=== PATIENT | female | born 1985 | race African-American/Black ===

== ENCOUNTER → 2016-11-25 | Outpatient (CLI) | payer OTHER ==
[~2016-11-25] MED LIST: PRENTAB26 PO
== END | disposition home or self-care (01) ==
LOC: C.LABSPEC 12:49
PROVIDERS: ATTEND Obstetrics & Gynecology
DX: Z34.93 Encounter for supervision of normal pregnancy, unspecified, third trimester (principal)

== ENCOUNTER 2016-12-11 02:52 | Inpatient (IN) | payer OTHER ==
[~2016-12-11] VITALS: Ht 165.1 cm; Wt 95.5 kg
[2016-12-18] MEDS ORDERED: LACTATED RINGER'S 1000ML 500 ML IV PRN ×2 (09:13→12:27)
[2016-12-18] MEDS ORDERED: OXYTOCIN 30 UNITS/500ML NSS IV PRN ×2 (09:30→15:45)
[2016-12-18 09:53] LABS: HEMATOCRIT 34.2 % (37-47); MEAN CELL VOLUME 74.3 fL (80-100); MEAN PLATELET VOLUME 10.6 fL (7.4-10.4); PLATELET COUNT 193 K/uL (130-400); WHITE BLOOD COUNT 9.83 K/uL (4.8-10.8)
[2016-12-18] MEDS: LACTATED RINGER'S 1000ML 1,000 ML IV SCH ×3 (10:15→14:24)
[2016-12-18 10:57] VITALS: Ht 165.1 cm; Wt 95.5 kg
--- NOTE | 2016-12-18 11:15 | Medical Student: [facility] ---
Med Student History & Physical Date of Service Dec 18, 2016. Chief Complaint Induction History of Present Illness Source: patient 31 year old , [employer] 12/11/16 by US 05/06/16, 41 weeks GA, for induction. Patient is currently feeling contractions and movement. No bleeding or fluid leaks however. She denies GRIDER, dizziness, lightheadedness, and vision changes. Her course was significant for no pole seen on US on 04/16 when she was told she had a miscarriage. Subsequent US were WNL however . PMH is significant for anemia, asthma, and functional murmur. NST at 40 + 6 weeks GA was reactive. Patient is blood type A +, negative antibody screen, rubella immune, VDRL/RPR nonreactive, negative HbsAg & HIV, negative G & C, negative 2nd trimester screen and negative GBS culture. Her gynecologic history is significant for a right dermoid ovarian cyst discovered on US at 7 weeks 4 days GA. 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 Patient needs US for possible removal. Last pap smear in 2014 was negative for intraepithelial lesion and malignancy. Obstetrical history is significant for an elective in June 2014 at 7 weeks GA and a in April 2012 at 39 weeks GA. OB History Obstetrical history is significant for an elective in 2013 at 7 weeks GA and a on 04/15/2012 at 30 weeks GA. The baby was 7 lbs. No complications with the . TE[employer]ER [employer]ARN[employer] DISABLED History Gynecological history is significant for menarche beginning at age 15 and frequency of menstruation is every 23 days. Patient has no history of abnormal pap smear. Last pap in 2014 showed no intraepithelial lesion or malignancy. No history of STIs and she does has a history of dense breasts. Past Medical History Past medical history is significant for a right dermoid cyst discovered at 7 weeks 4 days GA, anemia, functional murmur, and asthma. Past Surgical History Surgical history significant for wisdom teeth extraction 2 years ago. Family History Family history is significant for breast cancer (mother), HTN (aunt) and DM ( aunt). 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 FOB is not involved. She has never used tobacco products. She dose not consume alcohol and has never used illicit drugs. Smoking Status: Never Smoker Smokeless Tobacco Use: No Alcohol Use: socially Drug Use: none Marital Status: single Housing status: lives with family (lives in [place] with 4 year old daughter ) Occupational Status: employed ([place] at [employer] and works for [employer]) Allergies Coded Allergies: No Known Allergies (Unverified , 12/18/16) Home Medications Multivit/Min/Iron/Fol Ac/Pren ( Vitamin), 1 TAB PO DAILY Review of Systems Constitutional: No fever Eyes: No worsening of vision ENT: No hearing loss Respiratory: No cough, No shortness of breath Cardiovascular: No chest pain, No palpitations Abdomen: No constipation, No diarrhea, No nausea, No pain, No vomiting Genitourinary - Female: No dysuria Integumentary: No itch, No rash Physical Exam General Appearance: WD/WN, no apparent distress Head: normocephalic Eyes: normal inspection ENT: normal ENT inspection Neck: supple, no adenopathy Respiratory/Chest: lungs clear, normal breath sounds, no respiratory distress Cardiovascular: regular rate, rhythm, no gallop, no JVD, no murmur Extremities: + pedal edema (1 + b/l ) Skin: normal color, warm/dry Vitals: HR 73, BP 122/81 Cervical exam: 4 cm dilated, 50 % effaced, -2 station Monitoring External Monitor: Heart Tracing Category 1: HR 143, moderate variability, present early decelerations, present accelerations, absent variable and late decelerations. Tocodynamometer: contractions every 3 minutes Laboratory Results 12/18/16 09:34 Test 12/18/16 09:34 Red Blood Count 4.60 M/uL (4.2-5.4) Mean Corpuscular Volume 74.3 fL (80-100) Mean Corpuscular Hemoglobin 23.0 pg (25-34) Mean Corpuscular Hemoglobin Concent 31.0 g/dl (32-36) RDW Standard Deviation 51.6 fL (36.4-46.3) RDW Coefficient of Variation 19.4 % (11.5-14.5) Mean Platelet Volume 10.6 fL (7.4-10.4) Nucleated RBC Absolute Count (auto) 0.02 K/uL (0-0) Nucleated Red Blood Cells % 0.2 % Assessment and Plan 31 year old , [employer] 12/11/16 by US 05/06/16, 41 weeks GA, for induction. Patient is blood type A +, rubella immune, and GBS negative culture. Patient is currently feeling contractions and movement. No bleeding or fluid leaks however. -continue Oxytocin 30 units IV for labor induction -continue EFM -patient will notify when she wants epidural for pain control
[2016-12-18] MEDS ORDERED: EpHEDrine SULFATE INJ 50 MG/ML AMP ONE (12:10)
[2016-12-18] MEDS ORDERED: BUPIVACAINE 0.25% 30 ML VIAL ONE (12:10)
[2016-12-18] MEDS ORDERED: FENTANYL 2MCG/ML ROPIV 1.25MG/ML 100ML BAG EPI ONE (12:10)
[2016-12-18] MEDS ORDERED: FENTANYL CITRATE INJ 50 MCG/1 ML 2 ML VIAL ONE (12:10)
[2016-12-18] MEDS ORDERED: NALOXONE HCL INJ 1 MG in SODIUM CHLORIDE 0.9% 1000ML 1,000 ML IV PRN (12:27)
[2016-12-18] MEDS ORDERED: FENTANYL 2MCG/ML ROPIV 1.25MG/ML 100ML BAG EPI PRN (12:30)
[2016-12-18] MEDS ORDERED: NALOXONE HCL INJ 0.4 MG/1 ML VIAL/CARP IV PRN (12:30)
[2016-12-18] MEDS ORDERED: NALBUPHINE HCL INJ 10 MG/ML AMP IV PRN (12:30)
[2016-12-18] MEDS ORDERED: EpHEDrine SULFATE INJ 50 MG/ML AMP IV PRN (12:30)
[2016-12-18] MEDS ORDERED: DiphenhydrAMINE HCL 50 MG/ML VIAL IV PRN (12:30)
--- NOTE | 2016-12-18 13:47 | Medical Student: [facility] ---
Med Student GERIATRIC PHYSICAL THERAPIST Progress Nt Date of Service Dec 18, 2016. 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 Patient is blood type A +, rubella immune, and GBS negative culture. Patient is currently feeling contractions and movement. No bleeding. Epidural in place. Artificial rupture of membranes by Dr. Rogel. Review of Systems Constitutional: No fever Respiratory: No cough, No shortness of breath Cardiac: No chest pain, No palpitations Abdomen: No diarrhea, No nausea, No pain, No vomiting Female : No dysuria Objective Vital Signs Maternal BP: 121/70 Maternal HR: 81 Physical Exam General Appearance: WELL-APPEARING, WD/WN, NO APPARENT DISTRESS Respiratory/Chest: lungs clear, normal breath sounds Cardiovascular: regular rate, rhythm, no gallop, no JVD, no murmur Extremities: + pedal edema (1 + b/l ) Laboratory Results Last 24 Hours Test 12/18/16 09:34 White Blood Count 9.83 K/uL Red Blood Count 4.60 M/uL Hemoglobin 10.6 g/dL Hematocrit 34.2 % Mean Corpuscular Volume 74.3 fL Mean Corpuscular Hemoglobin 23.0 pg Mean Corpuscular Hemoglobin Concent 31.0 g/dl RDW Standard Deviation 51.6 fL RDW Coefficient of Variation 19.4 % Platelet Count 193 K/uL Mean Platelet Volume 10.6 fL Nucleated RBC Absolute Count (auto) 0.02 K/uL Nucleated Red Blood Cells % 0.2 % Medications Medications (Trade) Dose Ordered Sig/Storm Route Start Time Stop Time Status Last Admin Dose Admin Lactated Ringer's (Lr 1000ml) 1,000 ml @ 125 mls/hr Q8H IV 12/18/16 09:30 12/20/16 09:29 12/18/16 12:49 125 MLS/HR Oxytocin (Pitocin IV) 30 units UD PRN IV 12/18/16 09:30 01/17/17 09:29 12/18/16 10:17 30 UNITS Fentanyl/ Ropivacaine (Fentanyl 2MCG/ Ml/Ropivacaine 1.25MG/ML) 100 ml PRN PRN EPI 12/18/16 12:30 12/19/16 12:29 12/18/16 12:48 100 ML Assessment and Plan Continue Routine 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 Patient is blood type A +, rubella immune, and GBS negative culture. Patient is currently feeling contractions and movement. No bleeding. Epidural in place. Artificial rupture of membranes by Dr. Rogel. -continue Oxytocin 30 units IV for labor induction -continue IV Nalbuphine 5 mg Q10M PRN for pain -continue EFM
[2016-12-18] MEDS ORDERED: SUPERCREAM 0.870 % 15GM JAR EXT PRN (15:45)
[2016-12-18] MEDS ORDERED: HYDROCORTISONE ACETATE 25 MG SUPP PR PRN (15:45)
[2016-12-18] MEDS ORDERED: LANOLIN OINT EXT PRN ×2 (15:45)
[2016-12-18] MEDS ORDERED: OXYCODONE/ACETAMINOPHEN 5-325 TAB PO PRN (15:45)
[2016-12-18] MEDS ORDERED: ACETAMINOPHEN/CODEINE 300/30MG TAB PO PRN ×2 (15:45)
[2016-12-18] MEDS ORDERED: BENZOCAINE 20% AER SPR 82.5 GM CAN EXT PRN (15:45)
[2016-12-18] MEDS ORDERED: ACETAMINOPHEN 325 MG TAB PO PRN (15:45)
--- NOTE | 2016-12-18 16:08 | DELIVERY SUMMARY ---
DATE OF OPERATION: 12/18/2016 VAGINAL DELIVERY NOTE Gertrude was induced at 41 weeks and 0 days. Group B strep negative. She began at 4 cm. Pitocin was started, epidural obtained and an AROM performed. She progressed to fully dilated and delivered a baby in left occiput anterior position. Head was delivered, mouth and then nares were suctioned. Baby was somewhat larger, but I was able to really see anterior shoulder underneath the symphysis pubis and with gentle traction, I was able to delivery the baby without difficulty or further maneuvers. Live male did require resuscitation at first, but soon afterwards was vigorous. Fluid was clear until some terminal meconium. There was a nuchal cord x2, which was released over the head after delivery of the head first. A small first degree tear repaired with 3-0 Vicryl. Placenta removed with gentle traction. IV Pitocin started and hemostasis improved. Sponge and instrument counts correct. Estimated blood loss 250 mL. I attest to the content of the Intraoperative Record and any orders documented therein. Any exceptio ns are noted below.
--- NOTE | 2016-12-18 16:33 | Medical Student: [facility] ---
Medical Student Delivery Note PRE-DELIVERY DIAGNOSIS: -31 year old , 41 weeks 0 days GA -right dermoid ovarian cyst -functional murmur POST-DELIVERY DIAGNOSIS: same PROCEDURE: Spontaneous vaginal delivery and repair of 1st degree perineal laceration ESTIMATED BLOOD LOSS: 250 mL FINDING: viable male DESCRIPTION OF DELIVERY: Patient was administered epidural and oxytocin and progressed to complete labor. She began to push and spontaneously vaginally delivered a viable male . The was delivered in the occiput anterior position. After the head was delivered and the mouth and nares were suctioned. A a nuchal cord noted. The nuchal record was released over the head. Next, the anterior shoulder was delivered with gentle traction under the pubis symphysis followed by the posterior shoulder. Then the body was delivered. The baby was warmed and dried and subsequently placed on mother's abdomen. The baby needed resuscitation , but then cried vigorously. The cord was doubly clamped and cut for cord gas. Cord blood was then collected. Upon palpation of the uterus, it was boggy. Manual massage was applied until firm. Next, the perineum, vagina and cervix were inspected for any tears. A 1st degree perineal laceration was observed. This laceration was repaired. The placenta was then delivered spontaneously with gentle traction on the cord. It was intact with 2 umbilical arteries and 1 umbilical veins. Then continued repair of the 1st degree perineal laceration occurred. Sponges, instruments and needles were counted and correct at the end of the delivery. Hemostasis was achieved and IV Oxytocin was started.
--- NOTE | 2016-12-18 16:39 | Anesthesia Procedure Note ---
Anesthesia Epidural Removal Nt Date & Time Dec 18, 2016 at 16:39 Vital Signs Pain Intensity: 3.0 Notes Mental Status: alert / awake / arousable, participated in evaluation Nausea / Vomiting: adequately controlled Pain: adequately controlled Airway Patency, RR, SpO2: stable & adequate BP & HR: stable & adequate Hydration State: stable & adequate Neuraxial Anesthesia: was administered, sensory block is resolving Anesthetic Complications: no major complications apparent, pt satisfied with anesthetic care Epidural: removed without complications, with tip intact
[2016-12-18 18:00] VITALS: BP 115/70; PULSE 80; TEMP 36.6
[2016-12-18] MEDS: DOCUSATE SODIUM 100 MG CAP PO SCH (20:03)
[2016-12-18] MEDS: IBUPROFEN 600 MG TAB PO PRN (20:04)
[2016-12-18 20:05] VITALS: BP 132/80; PULSE 66; TEMP 37
[2016-12-19 00:20] VITALS: BP 110/73; PULSE 61; TEMP 36.9
[2016-12-19] MEDS: IBUPROFEN 600 MG TAB PO PRN ×4 (01:23→23:36)
[2016-12-19 04:45] VITALS: BP 122/77; PULSE 60; TEMP 36.7
--- NOTE | 2016-12-19 06:48 | Medical Student: [facility] ---
Med Student BLOCKMAN Progress Nt Date of Service Dec 19, 2016. Subjective conversation w/ patient Ambulation: ambulating normally Voiding: no voiding problems Passing Gas: Yes Diet Tolerance: Regular Diet Lochia: Moderate Feeding Type: Breast Feeding (some bottle feeding d/t hypoglycemia in baby ) Pain: 5/10 bottom and lower abdominal pain Review of Systems Constitutional: No fever Respiratory: + cough, No shortness of breath Cardiac: No chest pain, No palpitations Abdomen: + constipation, + pain, No diarrhea, No nausea, No vomiting Female : No dysuria Objective Vital Signs Date Time Temp Pulse Resp B/P Pulse Ox O2 Delivery O2 Flow Rate FiO2 12/19/16 04:45 36.7 60 18 122/77 Room Air 12/19/16 00:20 Room Air 12/19/16 00:20 36.9 61 18 110/73 Room Air 12/18/16 20:05 37.0 66 20 132/80 Room Air 12/18/16 18:00 36.6 80 16 115/70 Room Air Physical Exam General Appearance: WELL-APPEARING, NO APPARENT DISTRESS Respiratory/Chest: lungs clear, normal breath sounds Cardiovascular: regular rate, rhythm, no gallop, no JVD, no murmur Abdomen: normal bowel sounds Fundus: Firm, Relation to Umbilicus (2 cm above ) Extremities: + pedal edema (1 + pedal edema ) Laboratory Results Last 24 Hours Test 12/18/16 09:34 12/19/16 04:44 White Blood Count 9.83 K/uL Red Blood Count 4.60 M/uL Hemoglobin 10.6 g/dL Hematocrit 34.2 % Mean Corpuscular Volume 74.3 fL Mean Corpuscular Hemoglobin 23.0 pg Mean Corpuscular Hemoglobin Concent 31.0 g/dl RDW Standard Deviation 51.6 fL RDW Coefficient of Variation 19.4 % Platelet Count 193 K/uL Mean Platelet Volume 10.6 fL Nucleated RBC Absolute Count (auto) 0.02 K/uL Nucleated Red Blood Cells % 0.2 % Medications Medications (Trade) Dose Ordered Sig/Storm Route Start Time Stop Time Status Last Admin Dose Admin Lactated Ringer's (Lr 1000ml) 1,000 ml @ 125 mls/hr Q8H IV 12/18/16 09:30 12/20/16 09:29 12/18/16 14:24 125 MLS/HR Oxytocin (Pitocin IV) 30 units UD PRN IV 12/18/16 09:30 01/17/17 09:29 12/18/16 10:17 30 UNITS Fentanyl/ Ropivacaine (Fentanyl 2MCG/ Ml/Ropivacaine 1.25MG/ML) 100 ml PRN PRN EPI 12/18/16 12:30 12/18/16 15:35 DC 12/18/16 12:48 100 ML Benzocaine (Dermoplast Aero Spr) 1 appln PRN PRN EXT 12/18/16 15:45 01/17/17 15:44 12/18/16 17:57 1 APPLN Ibuprofen (Motrin Tab) 600 mg Q4H PRN PO 12/18/16 15:45 01/17/17 15:44 12/19/16 04:58 600 MG Acetaminophen/ Codeine Phosphate (Tylenol w/ Codeine #3 Tab) 1 tab Q4H PRN PO 12/18/16 15:45 01/17/17 15:44 12/19/16 04:58 1 TAB Docusate Sodium (coLACE CAP) 100 mg BID PO 12/18/16 20:00 01/17/17 19:59 12/18/16 20:03 100 MG Assessment and Plan Post- Day Number: 1 Continue Routine Care: 31 year old , PP day 1. Patient was induced and had with a 1st degree perineal laceration repair. -Vitals stable & WNL -Blood type A +, rubella immune -doing well clinically -encourage ambulation -tolerating PO diet -pain moderately controlled with PO Ibuprofen 600 mg Q4hr PRN and PO Tylenol 1 tab Q4hr PRN -constipation not well controlled with PO Docusate 100 mg BID -discharge home tomorrow
--- NOTE | 2016-12-19 06:54 | Progress Note ---
Subjective Dec 19, 2016. Subjective conversation w/ patient, physical exam Ambulation: ambulating normally Voiding: no voiding problems Passing Gas: Yes Diet Tolerance: Regular Diet Lochia: Moderate Feeding Type: Breast Feeding Pain: No pain reported this morning Review of Systems Constitutional: No chills, No fever Respiratory: No cough, No shortness of breath Cardiac: No chest pain Breast: No breast pain Abdomen: No nausea, No pain, No vomiting Female : No dysuria Objective Vital Signs Date Time Temp Pulse Resp B/P Pulse Ox O2 Delivery O2 Flow Rate FiO2 12/19/16 04:45 36.7 60 18 122/77 Room Air 12/19/16 00:20 Room Air 12/19/16 00:20 36.9 61 18 110/73 Room Air 12/18/16 20:05 37.0 66 20 132/80 Room Air 12/18/16 18:00 36.6 80 16 115/70 Room Air Physical Exam General Appearance: WELL-APPEARING, WD/WN, NO APPARENT DISTRESS Respiratory/Chest: lungs clear, normal breath sounds Cardiovascular: regular rate, rhythm, no gallop, no murmur Abdomen: non tender, soft Fundus: Firm, Relation to Umbilicus (1cm above umbilicus) Extremities: no calf tenderness Laboratory Results Last 24 Hours Test 12/18/16 09:34 12/19/16 04:44 White Blood Count 9.83 K/uL Red Blood Count 4.60 M/uL Hemoglobin 10.6 g/dL Hematocrit 34.2 % Mean Corpuscular Volume 74.3 fL Mean Corpuscular Hemoglobin 23.0 pg Mean Corpuscular Hemoglobin Concent 31.0 g/dl RDW Standard Deviation 51.6 fL RDW Coefficient of Variation 19.4 % Platelet Count 193 K/uL Mean Platelet Volume 10.6 fL Nucleated RBC Absolute Count (auto) 0.02 K/uL Nucleated Red Blood Cells % 0.2 % Medications Current Inpatient Medications Medications (Trade) Dose Ordered Sig/Storm Route Start Time Stop Time Status Last Admin Dose Admin Lactated Ringer's (Lr 1000ml) 1,000 ml @ 125 mls/hr Q8H IV 12/18/16 09:30 12/20/16 09:29 12/18/16 14:24 125 MLS/HR Oxytocin 30 units 30 units UD PRN IV 12/18/16 09:30 01/17/17 09:29 12/18/16 10:17 30 UNITS Lactated Ringer's (Lr 1000ml) 500 ml @ 999 mls/hr Q31M PRN IV 12/18/16 09:13 01/17/17 09:12 Oxytocin (Pitocin IV) 30 units UD PRN IV 12/18/16 15:45 01/17/17 15:44 Benzocaine (Dermoplast Aero Spr) 1 appln PRN PRN EXT 12/18/16 15:45 01/17/17 15:44 12/18/16 17:57 1 APPLN Cocaine HCl (Supercream 0.870% Cr) BID PRN EXT 12/18/16 15:45 01/01/17 15:44 Hydrocortisone Acetate (Anusol Hc Supp) 25 mg BID PRN MD 12/18/16 15:45 01/17/17 15:44 Lanolin (Lanolin Oint) PRN PRN EXT 12/18/16 15:45 01/17/17 15:44 Prenat Multivit/ Travis/Iron/Folic Ac ( Vitamin Tab) 1 tab DAILY PO 12/19/16 08:00 01/18/17 07:59 Ibuprofen (Motrin Tab) 600 mg Q4H PRN PO 12/18/16 15:45 01/17/17 15:44 12/19/16 04:58 600 MG Acetaminophen (Tylenol Tab) 650 mg Q6H PRN PO 12/18/16 15:45 01/17/17 15:44 Acetaminophen/ Codeine Phosphate (Tylenol w/ Codeine #3 Tab) 1 tab Q4H PRN PO 12/18/16 15:45 01/17/17 15:44 12/19/16 04:58 1 TAB Acetaminophen/ Codeine Phosphate (Tylenol w/ Codeine #3 Tab) 2 tab Q4H PRN PO 12/18/16 15:45 01/17/17 15:44 Bisacodyl (Dulcolax Tab) 5 mg 20 PO 12/19/16 20:00 12/19/16 20:01 Bisacodyl (Dulcolax Supp) 10 mg DAILY PRN MD 12/20/16 07:00 Docusate Sodium (coLACE CAP) 100 mg BID PO 12/18/16 20:00 01/17/17 19:59 12/18/16 20:03 100 MG Assessment and Plan Post- Day#: 1 Continue Routine Care: -Vital Signs reviewed and WNL (temp max 36.7) - Blood Type: B+, GBS Negative, Rubella Immune - Encourage Ambulation today - Tolerating PO Diet - Pain well controlled Resident Physician Supervision Note: I interviewed and examined the patient. Discussed with Dr. Davis and agree with findings and plan as documented in the note. Any exceptions or clarifications are listed here: [None] Documented By: Mikael Rogel
--- NOTE | 2016-12-19 07:12 | Discharge Instructions ---
Discharge Instructions Admission Reason for Admission: Induction Discharge Discharge Diagnosis / Problem: Vaginal Delivery Discharge Goals Goal(s): Routine recovery after delivery Medications Continue Dispensed Medications: supercream, dermaplast, tucks, lansinoh Activity Recommendations Activity Limitations: per Instructions/Follow-up section . Instructions / Follow-Up Instructions / Follow-Up ACTIVITY RECOMMENDATIONS: * Gradual return to full activity over the next 2-3 weeks. * No lifting - nothing heavier than baby over the next 2-3 weeks. * Do not engage in vigorous exercise, sexual activity or sports until cleared by your physician. * Do not drive or operate any motorized equipment until cleared by your physician. * You may shower/bathe daily. MEDICATIONS: For discomfort or pain, you may use Acetaminophen (Tylenol), Ibuprofen (Advil), or Naproxen (Aleve) following the package directions. For constipation you may use Colace following the package directions. BREAST CARE: If you are not breast feeding: * Wear a supportive bra 24 hours a day for one to two weeks. * Avoid stimulating your breasts and nipples as much as possible during the first few weeks after delivery. * When taking a shower, have the warm water hit your back, not breasts. * When your breasts feel full, apply ice packs. Usually three to four times a day helps ease the discomfort. * Take a mild pain medication (Tylenol / Motrin) when you are uncomfortable. If breast feeding: * Use breast milk to lubricate nipples. Lansinoh cream may be used for sore nipples. You do not need to remove cream prior to breast feeding. If using a different brand of cream, check the label for directions regarding removal of cream prior to nursing. * Wear a supportive bra. * If having problems with breasts or breast feeding, call a mobile sales consultant or your health care provider. EPISIOTOMY CARE: After delivery, if you have an episiotomy (stitches), the following steps will ease discomfort and aid healing. * For the first 24 hours after delivery, place ice packs next to your episiotomy to help reduce swelling. * After the first 24 hour-period, sitz baths, either portable or in the tub, are suggested. A shower with a shower arm sprayed over the episiotomy may be comforting. * Rama care should be done after each voiding and bowel movement. Squirt warm water from a plastic bottle over the perineum (region of the body between the anus and urinary opening) and pat dry. * Use Dermoplast to ease discomfort. Shake container. [place] directly over the episiotomy. Place a Tucks on a clean sanitary pad next to your episiotomy. SPECIAL CARE INSTRUCTIONS: When you are discharged from the hospital, it is important for you to follow the instructions listed below: * During the first week at home, you should be able to care for yourself and your baby. In addition, the usual light household activities are encouraged. * Limit your activities to the way you feel. Do not try to clean the house or move furniture. Be sensible. * If you actively engage in sports and have done so up until the time of your delivery, you may resume these activities as soon as you feel able. This may take up to one month or even longer. Use good judgment. * Continue to take your vitamins for at least six weeks after the of your baby. * Your diet need not be limited unless you were on a special diet before your delivery. Breast-feeding mothers need around 2500 calories per day and at least 64-80 ounces of fluid per day (8 to 10 glasses). * You should eat foods from the four major food groups. Crash diets or fad diets are to be avoided. Eating lean meats, fresh fruits and vegetables, low-fat dairy products, high fiber foods and a regular exercise program, will help you get back to your pre- weight without putting your health at risk. * Constipation is sometimes a problem after delivery. Take a mild laxative as needed. If breast feeding, Milk of Magnesia is acceptable to use. You may use a suppository or Fleets enema if no episiotomy. * A daily shower or tub bath is suggested. Be sure to thoroughly and gently dry the perineum. * A bloody vaginal discharge will usually continue until around four weeks post . A small amount of bleeding may continue for as long as six weeks. Vaginal discharge changes from the bright red bleeding after delivery to pink then brownish and finally yellowish-pink before becoming white and disappearing. * Bleeding may increase with activity. Your first period may come in 4-8 weeks. If you are breast feeding, your period may be delayed even longer. * [place] (sex) can begin whenever both you and your partner feel comfortable and do not have any form of genital infection. It is recommended that you wait at least six weeks for internal and external healing to occur. If you have questions, please talk to your health care practitioner. A condom should be used to prevent infection and . * Foreplay, gentle intercourse and lubrication is very important the first several times to prevent pain. A water-based lubricant such as K-Y jelly or Astroglide may be used. * If you have RH negative blood and your baby is RH positive, you will receive RHOGAM by injection prior to discharge. The nurse will give you a card to keep with you that has the date and place that you received RHOGAM after delivery. * During your care, you had a Rubella screen done to check for the presence of rubella antibodies in your blood. If your test was negative, you will receive a Rubella vaccine prior to discharge. This vaccine may cause a fever, soreness at the injection site and flu-like symptoms. If these symptoms persist, notify your health care practitioner. is not advised for one month after a Rubella vaccine. * Verbalizes understanding of car seat law as reviewed with patient nursing. * Car Seat hand-out given and reviewed with patient by nursing. * Shaken baby information reviewed with patient by nursing. Call you doctor if: * Heavy bleeding (saturating several pads an hour) or passing clots the size of your fist. * A fever >101 degrees F (38.3 degrees C) on two occasions four hours apart and /or chills. * Unusual pain in the pelvic or vaginal areas. * "Baby Blues" lasting longer than two weeks. If you have any questions or concerns, call your health care practitioner at . FOLLOW UP VISIT: * Please call the office at to schedule a 6 week examination. It is important you keep this appointment. It is important for you to make arrangements for either yearly or twice yearly check-ups thereafter. Current Hospital Diet Patient's current hospital diet: Regular OB Diet Discharge Diet Recommended Diet: Regular Diet Pending Studies Studies pending at discharge: no Medical Emergencies . Who to Call and When: Medical Emergencies: If at any time you feel your situation is an emergency, please call 911 immediately. . Non-Emergent Contact Non-Emergency issues call your: Clay Carman . . "Provider Documentation" section prepared by Irving Davis. VTE Core Measure Inpt VTE Proph given/why not?: Treatment not indicated
[2016-12-19 07:59] LABS: HEMATOCRIT 30.9 % (37-47)
[2016-12-19 08:00] VITALS: BP 103/67; PULSE 69; TEMP 36.7
[2016-12-19] MEDS: PRENATAL VITAMIN TAB PO SCH (09:18)
[2016-12-19] MEDS: DOCUSATE SODIUM 100 MG CAP PO SCH ×2 (09:18→19:51)
[2016-12-19 12:30] VITALS: BP 109/65; PULSE 72; TEMP 36.3
[2016-12-19 16:40] VITALS: BP 123/78; PULSE 69; TEMP 36.6
[2016-12-19] MEDS ORDERED: BISACODYL 5 MG TABEC PO SCH (20:00)
[2016-12-20] VITALS: BP 124/78; PULSE 70; TEMP 37; O2SAT 96
--- NOTE | 2016-12-20 06:23 | Medical Student: [facility] ---
Med Student [employer] Progress Nt Date of Service Dec 20, 2016. Subjective conversation w/ patient Ambulation: ambulating normally Voiding: no voiding problems Passing Gas: Yes Diet Tolerance: Regular Diet Lochia: Small Feeding Type: Breast Feeding Pain: well controlled Review of Systems Constitutional: No chills, No fever Respiratory: No cough, No shortness of breath Cardiac: No chest pain, No palpitations Abdomen: No constipation, No diarrhea, No nausea, No pain, No vomiting Female : No dysuria Objective Vital Signs Date Time Temp Pulse Resp B/P Pulse Ox O2 Delivery O2 Flow Rate FiO2 12/20/16 00:00 96 Room Air 12/20/16 00:00 37.0 70 18 124/78 96 Room Air 12/19/16 16:40 36.6 69 18 123/78 Room Air 12/19/16 16:40 Room Air 12/19/16 12:30 36.3 72 18 109/65 Room Air 12/19/16 08:00 Room Air 12/19/16 08:00 36.7 69 18 103/67 Room Air Physical Exam General Appearance: WELL-APPEARING, WD/WN, NO APPARENT DISTRESS Respiratory/Chest: lungs clear, normal breath sounds Cardiovascular: regular rate, rhythm, no gallop, no JVD, no murmur Abdomen: normal bowel sounds Fundus: Boggy, Non-Tender, Relation to Umbilicus (2 cm above umbilicus ) Extremities: normal inspection, + pedal edema (1 + bilaterally ) Laboratory Results Last 24 Hours Test 12/19/16 07:48 Hemoglobin 9.5 g/dL Hematocrit 30.9 % Medications Medications (Trade) Dose Ordered Sig/Storm Route Start Time Stop Time Status Last Admin Dose Admin Prenat Multivit/ Classroom Monitor/Iron/Folic Ac ( Vitamin Tab) 1 tab DAILY PO 12/19/16 08:00 01/18/17 07:59 12/19/16 09:18 1 TAB Bisacodyl (Dulcolax Tab) 5 mg 20 PO 12/19/16 20:00 12/19/16 20:01 DC 12/19/16 19:51 5 MG Assessment and Plan Post- Day Number: 2 Continue Routine Care: 31 year old, , PP day 2. at 41 weeks GA with 1st degree perineal laceration repair. -vitals stable and WNL -Blood type A +, rubella immune -Doing well clinically -encourage ambulation & ambulating well -tolerating PO diet -pain well controlled with PO Motrin 600 mg Q4hr PRN -discharge home today
[2016-12-20] MEDS: IBUPROFEN 600 MG TAB PO PRN ×2 (06:36→16:22)
--- NOTE | 2016-12-20 06:48 | Progress Note ---
Subjective Dec 20, 2016. Subjective conversation w/ patient, conversation w/ family Ambulation: ambulating normally Voiding: no voiding problems Passing Gas: Yes Diet Tolerance: Regular Diet Lochia: Moderate Feeding Type: Breast Feeding Pain: No pain reported this morning Review of Systems Constitutional: No chills, No fever Respiratory: No cough, No shortness of breath Cardiac: No chest pain Breast: No breast pain Abdomen: No nausea, No pain, No vomiting Female : No dysuria Objective Vital Signs Date Time Temp Pulse Resp B/P Pulse Ox O2 Delivery O2 Flow Rate FiO2 12/20/16 00:00 96 Room Air 12/20/16 00:00 37.0 70 18 124/78 96 Room Air 12/19/16 16:40 36.6 69 18 123/78 Room Air 12/19/16 16:40 Room Air 12/19/16 12:30 36.3 72 18 109/65 Room Air 12/19/16 08:00 Room Air 12/19/16 08:00 36.7 69 18 103/67 Room Air Physical Exam General Appearance: WELL-APPEARING, WD/WN, NO APPARENT DISTRESS Respiratory/Chest: lungs clear, normal breath sounds Cardiovascular: regular rate, rhythm, no gallop, no murmur Abdomen: non tender, soft Fundus: Firm, Relation to Umbilicus (1cm above) Extremities: no calf tenderness Laboratory Results Last 24 Hours Test 12/19/16 07:48 Hemoglobin 9.5 g/dL Hematocrit 30.9 % Medications Current Inpatient Medications Medications (Trade) Dose Ordered Sig/Storm Route Start Time Stop Time Status Last Admin Dose Admin Lactated Ringer's (Lr 1000ml) 1,000 ml @ 125 mls/hr Q8H IV 12/18/16 09:30 12/20/16 09:29 12/18/16 14:24 125 MLS/HR Oxytocin 30 units 30 units UD PRN IV 12/18/16 09:30 01/17/17 09:29 12/18/16 10:17 30 UNITS Lactated Ringer's (Lr 1000ml) 500 ml @ 999 mls/hr Q31M PRN IV 12/18/16 09:13 01/17/17 09:12 Oxytocin (Pitocin IV) 30 units UD PRN IV 12/18/16 15:45 01/17/17 15:44 Benzocaine (Dermoplast Aero Spr) 1 appln PRN PRN EXT 12/18/16 15:45 01/17/17 15:44 12/18/16 17:57 1 APPLN Cocaine HCl (Supercream 0.870% Cr) BID PRN EXT 12/18/16 15:45 01/01/17 15:44 Hydrocortisone Acetate (Anusol Hc Supp) 25 mg BID PRN GA 12/18/16 15:45 01/17/17 15:44 Lanolin (Lanolin Oint) PRN PRN EXT 12/18/16 15:45 01/17/17 15:44 Prenat Multivit/ [place]/Iron/Folic Ac ( Vitamin Tab) 1 tab DAILY PO 12/19/16 08:00 01/18/17 07:59 12/19/16 09:18 1 TAB Ibuprofen (Motrin Tab) 600 mg Q4H PRN PO 12/18/16 15:45 01/17/17 15:44 12/20/16 06:36 600 MG Acetaminophen (Tylenol Tab) 650 mg Q6H PRN PO 12/18/16 15:45 01/17/17 15:44 Acetaminophen/ Codeine Phosphate (Tylenol w/ Codeine #3 Tab) 1 tab Q4H PRN PO 12/18/16 15:45 01/17/17 15:44 12/19/16 04:58 1 TAB Acetaminophen/ Codeine Phosphate (Tylenol w/ Codeine #3 Tab) 2 tab Q4H PRN PO 12/18/16 15:45 01/17/17 15:44 Bisacodyl (Dulcolax Supp) 10 mg DAILY PRN GA 12/20/16 07:00 Docusate Sodium (coLACE CAP) 100 mg BID PO 12/18/16 20:00 01/17/17 19:59 12/19/16 19:51 100 MG Assessment and Plan Post- Day#: 2 Continue Routine Care: -Vital Signs reviewed and WNL (temp max 37.0) - Blood Type: A+, GBS Negative, Rubella Immune - Encourage Ambulation today - Tolerating PO Diet - No pain reported this morning - Discharge today Resident Physician Supervision Note: I interviewed and examined the patient. Discussed with Dr. Davis and agree with findings and plan as documented in the note. Any exceptions or clarifications are listed here: Uterus is firm at u. Doing well. Plan d/c. Instructions given. Documented By: Damari Rhodes
[2016-12-20] MEDS ORDERED: BISACODYL 10 MG SUPP PR PRN (07:00)
[2016-12-20] MEDS: PRENATAL VITAMIN TAB PO SCH (08:17)
[2016-12-20] MEDS: DOCUSATE SODIUM 100 MG CAP PO SCH (08:17)
[2016-12-20 08:35] VITALS: BP 121/73; PULSE 80; TEMP 36.8
[2016-12-20 15:45] VITALS: BP 136/78; PULSE 66; TEMP 36.7
[2016-12-20 17:04] VITALS: BP_DIAS 78; PULSE 66; TEMP 36.7
== END 2016-12-20 18:05 | disposition home or self-care (01) | DRG 775 ==
LOC: C.LD 12-18 08:45 → C.OBG 12-18 18:39
PROVIDERS: ADMIT Obstetrics & Gynecology; ATTEND Obstetrics & Gynecology
PROC: 3E033VJ Introduction of Other Hormone into Peripheral Vein, Percutaneous Approach (ICD-10-PCS; principal; 2016-12-18)
PROC: 0HQ9XZZ Repair Perineum Skin, External Approach (ICD-10-PCS; principal; 2016-12-18)
PROC: 10E0XZZ Delivery of Products of Conception, External Approach (ICD-10-PCS; principal; 2016-12-18)
PROC: 10907ZC Drainage of Amniotic Fluid, Therapeutic from Products of Conception, Via Natural or Artificial Opening (ICD-10-PCS; principal; 2016-12-18)
DX: O48.0 Post-term pregnancy (principal); O76 Abnormality in fetal heart rate and rhythm complicating labor and delivery; O69.81X0 Labor and delivery complicated by cord around neck, without compression, not applicable or unspecified; O77.0 Labor and delivery complicated by meconium in amniotic fluid; O70.0 First degree perineal laceration during delivery; O36.63X0 Maternal care for excessive fetal growth, third trimester, not applicable or unspecified; O99.52 Diseases of the respiratory system complicating childbirth; J45.909 Unspecified asthma, uncomplicated; Z37.0 Single live birth; Z3A.41 41 weeks gestation of pregnancy

== ENCOUNTER → 2018-02-20 | Outpatient (CLI) | payer OTHER | END | disposition home or self-care (01) | LOC: C.PAPS 15:42 | PROVIDERS: ATTEND Physician Assistant | DX: Z12.4 Encounter for screening for malignant neoplasm of cervix (principal) ==